=== PATIENT | male | born 1950 | race Caucasian/White ===

== ENCOUNTER 2019-07-11 00:28 | Day surgery (SDC) | payer MEDICARE, SELFPAY ==
[2019-07-06 13:18] VITALS: BMI 23.6
[2019-07-11 07:33] VITALS: BP 151/87; PULSE 100; RESP 16; TEMP 36.7; O2SAT 100
[2019-07-11] MEDS: LACTATED RINGERS 1,000 ML 150 ML IV CONT (07:51)
--- NOTE | 2019-07-11 08:25 | WPDANESEPPF ---
Anes - Initial Pre Proc Eval Procedure: Operation Date: 07/11/19 08:30 Proposed Procedures p Screening Colonoscopy - Caleb Rinaldi MD Date/Time: 07/11/19 08:25 Surgeon: Caleb Rinaldi MD Pre Op Diagnosis: Neoplasm Screening Patient Data Age: 69 Gender: M Height: 5 ft 9 in Weight: 75.2 kg Last Vital Signs Temp 98.1 F 07/11/19 07:33 Pulse 100 07/11/19 07:33 Resp 16 07/11/19 07:33 BP 151/87 H 07/11/19 07:33 Pulse Ox 100 07/11/19 07:33 Allergies Allergy/AdvReac Type Severity Reaction Status Date / Time No Known Allergies Allergy Unverified 07/11/19 07:31 Home Medications Medication Instructions Recorded Confirmed Type No Home Medications 07/06/19 07/06/19 History Patient hx anesthesia problems: none Family hx anesthesia problems: none PMFSH Family History Family History (Updated 11/02/18 @ 10:18 by DOCTOR UNKNOWN) Father Diabetes mellitus Social History Social History Smoking status: Former smoker Second hand tobacco smoke exposure: No Smoking end date: 05/11/70 Alcohol intake: current Gender identity (if verbalized by the patient): Male Anes - Eval Final PreProcedure Day of Procedure 07/11/19 08:25 Patient weight: normal Heart: regular rate and rhythm Lungs: clear to auscultation Airway: Mallampati scale class II Neurological: alert and oriented Last oral intake: >/= 8 hours ASA classification: II Emergent: no Anesthetic plan: proceed Anesthesia type and monitoring: general GIVS and standard monitoring Informed Consent: The patient's anesthetic plan and its attendant risks and benefits were discussed with the patient/family/POA. Questions were solicited and answers provided to the satisfaction of the patient/family/POA.
--- NOTE | 2019-07-11 08:33 | P.CONGI_ITS ---
Assessment and Plan Additional Plan This is a 69-year-old white male patient seen in evaluation at the request of Miguelangel bedolla. Patient presents for screening colonoscopy. His current weight appetite bowel movements are normal. He has noticed some change in the bowel texture. He denies any blood in his stools. He denies abdominal pain. past medical history noncontributory. Family history is noncontributory. He is on no medications. No known medical allergies. Physical exam patient is alert. Vital signs stable. HEENT exam unremarkable. Lungs are clear to auscultation and percussion. Heart is without murmur or extra sounds. Abdominal exam bowel sounds are present soft nontender with no organomegaly. Digital external rectal exam normal. Impression 1. Neoplasia screening. 2. Change in bowel habits. Most suspicious for irritable bowel syndrome. Plan is for colonoscopy. Fiber supplements may help with his bowel irregularities. GI Consult Note Consult date/time: 07/11/19 08:33 HPI: Akin Conteh is a 69 year old male [facility] Family History Family History (Updated 11/02/18 @ 10:18 by DOCTOR UNKNOWN) Father Diabetes mellitus Social History Social History Smoking status: Former smoker Second hand tobacco smoke exposure: No Smoking end date: 05/11/70 Alcohol intake: current Gender identity (if verbalized by the patient): Male Meds Home Medications and Allergies Home Medications Medication Instructions Recorded Confirmed Type No Home Medications 07/06/19 07/06/19 History Allergies Allergy/AdvReac Type Severity Reaction Status Date / Time No Known Allergies Allergy Unverified 07/11/19 07:31 Vital Signs Vital Signs - 24 hr 07/11/19 07:33 Temperature 36.7 C Pulse Rate 100 Respiratory Rate 16 Blood Pressure 151/87 H Pulse Oximetry 100
[2019-07-11] MEDS: SIMETHICONE ORAL SUSPENSION 20 MG/0.3 ML 30 ML BOTTLE 0.6 ML IRRIGATION (08:41)
[2019-07-11 08:48] VITALS: BP 122/67; PULSE 89; RESP 18; O2SAT 97
[2019-07-11 08:58] VITALS: BP 117/67; PULSE 77; RESP 21; O2SAT 98
[2019-07-11 09:04] VITALS: BP 125/79; PULSE 73; RESP 19; O2SAT 98
== END 2019-07-11 09:29 | disposition home or self-care (01) ==
PROVIDERS: PCP Internal Medicine; Visit Provider Internal Medicine Gastroenterology
PROC: 0DJD8ZZ Inspection of Lower Intestinal Tract, Via Natural or Artificial Opening Endoscopic (ICD-10-PCS; CPT 45378; principal; 2019-07-11 08:30)
DX: Z12.11 Encounter for screening for malignant neoplasm of colon (principal); D12.4 Benign neoplasm of descending colon; K57.30 Diverticulosis of large intestine without perforation or abscess without bleeding; K64.8 Other hemorrhoids; Z87.891 Personal history of nicotine dependence
CPT/HCPCS: 45385; 88305; J2704; J7120

== ENCOUNTER 2022-08-26 08:09 | Outpatient (CLI) | payer MEDICARE, SELFPAY ==
[2022-08-26 19:38] LABS: Alanine Aminotransferase 22 U/L (6-50); Albumin Level 3.9 g/dL (3.5-5.1); Alkaline Phosphatase 73 U/L (38-126); Anion Gap 8 mmol/L (8-16); Aspartate Amino Transferase 23 U/L (17-59); Bilirubin,Total 0.5 mg/dL (0.2-1.3); Blood Urea Nitrogen 24 mg/dL (9-20); Calcium 8.6 mg/dL (8.4-10.2); Carbon Dioxide 24 mmol/L (22-30); Chloride 109 mmol/L (98-107); Cholesterol 180 mg/dL (0-200); Estimated Glomerular Filt Rate > 60; Glucose 86 mg/dL (65-110); HDL Direct 35 mg/dL; Potassium 4.1 mmol/L (3.4-5.0); Sodium 141 mmol/L (137-145); Triglycerides 121 mg/dL (<150)
[2022-08-26 19:45] LABS: Basophils Percent Auto 0.4 % (0.2-1.2); Eosinophils Absolute Auto 0.2 K/mm3 (0-0.3); Eosinophils Percent Auto 3.2 % (0-4.4); Hematocrit 46.4 % (42.0-52.0); Hemoglobin 14.9 g/dL (14.0-18.0); Immature Granulocyte Absolute 0.02 K/mm3 (0.00-0.031); Immature Granulocyte Percent A 0.4 % (0-0.5); Lymphocytes Percent Auto 24.8 % (18.3-44.2); Mean Corpuscular HGB Conc 32.1 g/dl (32-36); Mean Corpuscular Hemoglobin 31.4 pg (26-34); Mean Corpuscular Volume 97.9 fl (80-100); Mean Platelet Volume 11.4 fl (7.4-10.4); Monocytes Absolute Auto 0.4 K/mm3 (0.1-0.6); Monocytes Percent Auto 7.8 % (2.6-8.5); Neutrophils Absolute Auto 3.3 K/mm3 (1.3-6.7); Neutrophils Percent Auto 63.4 % (45.5-73.1); Platelet Count Result 217 k/mm3 (150-375); Red Blood Count 4.74 M/mm3 (4.6-6.20); Red Cell Distribution Width 13.2 % (11.5-14.5); White Blood Count 5.2 K/mm3 (4.5-10.0)
[2022-08-26 19:49] LABS: LDL Cholesterol Direct 105 mg/dL
[2022-08-26 20:06] LABS: Prostate Specific Antigen 2.9 ng/mL (< OR = 4.0)
[2022-08-31 18:21] LABS: Testosterone Free 75.3 pg/mL (30.0-135.0); Testosterone Total 373 ng/dL (250-1100)
== END 2022-08-26 08:10 | disposition home or self-care (01) ==
LOC: ANHGOSHLAB 08:10
PROVIDERS: PCP Internal Medicine; Visit Provider Internal Medicine
DX: E29.1 Testicular hypofunction (principal); I10 Essential (primary) hypertension; Z13.228 Encounter for screening for other metabolic disorders; Z12.5 Encounter for screening for malignant neoplasm of prostate
CPT/HCPCS: 36415; 80053; 80061; 84153; 84402; 84403; 85025; G0103

== ENCOUNTER 2024-04-14 09:36 | Outpatient (CLI) | payer MEDICARE, SELFPAY ==
--- NOTE | ~2024-04-14 | MR_ITS ---
EXAMINATION: MR shoulder LT wo con DATE: 04/14/2024 10:07 INDICATION: Left shoulder pain. TECHNIQUE: Magnetic resonance imaging (MRI) of the left shoulder was performed without intravenous co ntrast. Sequences included axial PD-weighted FS FSE, coronal oblique PD-weighted FS FSE and T2-weight ed FS FSE, and sagittal oblique T2-weighted FS FSE and T1-weighted FSE. COMPARISON: None. FINDINGS: Coracoacromial arch: The acromion undersurface is curved in morphology (type II). There is severe acromioclavicular joint osteoarthritis. There is mild subacromial/subdeltoid bursitis. Rotator cuff: There is moderate supraspinatus tendinopathy and mild infraspinatus tendinopathy. There is an articul ar-sided partial thickness tear of the conjoined portion of the tendon measuring 10 mm anterior to po sterior by 6 mm proximal to distal by 1/5 tendon thickness. Teres minor tendon is normal. There is mi ld subscapularis tendinopathy. There is no asymmetric fatty atrophy of the rotator cuff muscle bellie s. Biceps tendon and glenoid labrum: Biceps tendon is in bicipital groove. Intra-articular biceps tendon is normal. The glenoid labrum is intact. Fluid: There is a small glenohumeral joint effusion. Bones/cartilage: There is cartilage surface irregularity of glenoid and humeral head. Osteophytes are noted. IMPRESSION: 1. Partial-thickness rotator cuff tear. 2. Mild glenohumeral joint chondrosis. 3. Severe acromioclavicular joint osteoarthritis. 4. Small glenohumeral joint effusion. 5. Mild subacromial/subdeltoid bursitis. Reviewed, dictated and finalized at location [facility]
== END 2024-04-14 09:37 | disposition home or self-care (01) ==
LOC: GOSHIMG 09:36
PROVIDERS: PCP Nurse Practitioner; Visit Provider Nurse Practitioner
DX: M75.102 Unspecified rotator cuff tear or rupture of left shoulder, not specified as traumatic (principal); M94.212 Chondromalacia, left shoulder; M19.012 Primary osteoarthritis, left shoulder; M25.412 Effusion, left shoulder; M75.52 Bursitis of left shoulder
CPT/HCPCS: 73221

== ENCOUNTER 2025-04-25 01:38 | Day surgery (SDC) | payer MEDICARE, SELFPAY ==
[2025-04-10 13:42] VITALS: BMI 23.6
[2025-04-25 13:04] VITALS: BP 148/94; PULSE 87; RESP 18; TEMP 36.6; O2SAT 100
[2025-04-25] MEDS: LACTATED RINGERS 1,000 ML 150 ML IV CONT (13:15)
--- NOTE | 2025-04-25 13:42 | P.PNAN_ITS ---
Anes - Initial Pre Proc Eval Procedure: Operation Date: 04/25/25 13:00 Proposed Procedures p Screening Colonoscopy - Cristian Perez MD Date/Time: 04/25/25 13:42 Surgeon: Cristian Perez MD Pre Op Diagnosis: Personal history of colon polyps, unspecified Patient Data Age: 75 Gender: M Height: 1.75 m Weight: 73 kg Last Vital Signs Temp 97.9 F 04/25/25 13:04 Pulse 87 04/25/25 13:04 Resp 18 04/25/25 13:04 BP 148/94 H 04/25/25 13:04 Pulse Ox 100 04/25/25 13:04 O2 Del Method Room Air 04/25/25 13:04 Allergies Allergy/AdvReac Type Severity Reaction Status Date / Time No Known Allergies Allergy Verified 04/25/25 13:04 Home Medications ?Medication ?Instructions ?Recorded ?Confirmed ?Type latanoprost 0.005 % eye drops 1 drp EACH EYE QPM 08/2504/10/25 History lisinopril 10 mg tablet 10 mg PO DAILY #90 tabs 06/0404/10/25 Rx Patient hx anesthesia problems: none Family hx anesthesia problems: none Results Review: All pre-operative results and documents have been reviewed as part of the pre- operative evaluation. [facility] Past Medical History Medical History Male hypogonadism Essential hypertension Hypertension Surgical History Surgical History S/P hernia repair Family History Family History Father Diabetes mellitus Mother Cancer Social History Social History Years smoked: 2 Smoking status: Former smoker Tobacco type: cigarettes Second hand tobacco smoke exposure: No Smoking end date: 05/11/70 Alcohol intake: current Drinks per week: 6 Substance use: never Substance use type: does not use Lack of Transportation: No Lack of Food: Never True Current Housing: I Have Housing Concerned About Future Housing: No Difficulty Paying Gas/Electric Bills: No Difficulty Paying for Meds: No Currently Unemployed: No Education: Master's Degree or Higher Difficulty w/ Childcare or Family Care: No Living arrangements: with family Gender identity (if verbalized by the patient): Male Spiritual care concerns: No Agree to blood products: Yes Anes - Eval Final PreProcedure Day of Procedure 04/25/25 13:42 Patient weight: normal Lungs: normal air movement Airway: Mallampati scale class II Neurological: alert and oriented Last oral intake: >/= 8 hours ASA classification: II Emergent: no Anesthetic plan: proceed Anesthesia type and monitoring: general GIVS and standard monitoring Results Review: All pre-operative results and documents have been reviewed as part of the pre- operative evaluation. HTN, very active w cardio/wts, 5 x weekly, no cp or sob. Informed Consent: The patient's anesthetic plan and its attendant risks and benefits were dis cussed with the patient/family/POA. Questions were solicited and answers provided to the satisfaction of the patient/family/POA.
--- NOTE | 2025-04-25 13:48 | PM.IMHP2 ---
H&P: HPI History of Present Illness Date/Time: 04/25/25 13:48 Chief Complaint: History of colon polyps Narrative: The patient has a history of colonic polyps, the last colonoscopy was 5 years ago. Review of Systems Review of Systems: All systems reviewed & are unremarkable except as noted in HPI and below PMFSH Past Medical History Medical History Male hypogonadism Essential hypertension Hypertension Surgical History Surgical History S/P hernia repair Family History Family History Father Diabetes mellitus Mother Cancer Social History Social History Years smoked: 2 Smoking status: Former smoker Tobacco type: cigarettes Second hand tobacco smoke exposure: No Smoking end date: 05/11/70 Alcohol intake: current Drinks per week: 6 Substance use: never Substance use type: does not use Lack of Transportation: No Lack of Food: Never True Current Housing: I Have Housing Concerned About Future Housing: No Difficulty Paying Gas/Electric Bills: No Difficulty Paying for Meds: No Currently Unemployed: No Education: Master's Degree or Higher Difficulty w/ Childcare or Family Care: No Living arrangements: with family Gender identity (if verbalized by the patient): Male Spiritual care concerns: No Agree to blood products: Yes Meds Home Medications and Allergies Home Medications ?Medication ?Instructions ?Recorded ?Confirmed ?Type latanoprost 0.005 % eye drops 1 drp EACH EYE QPM 08/25/22 04/10/25 History lisinopril 10 mg tablet 10 mg PO DAILY #90 tabs 12/09/24 04/10/25 Rx Allergies Allergy/AdvReac Type Severity Reaction Status Date / Time No Known Allergies Allergy Verified 04/25/25 13:04 Vital Signs Vital Signs - 24 hr 04/25/25 13:04 Temperature 97.9 F Pulse Rate 87 Respiratory Rate 18 Blood Pressure 148/94 H Pulse Oximetry 100 Oxygen Delivery Room Air Exam Const: General: cooperative and healthy appearing Resp: Effort & Inspection: normal respiratory effort and able to speak in complete sentences Auscultation: clear to auscultation bilaterally Cardio: Rate: regular rate Rhythm: regular rhythm GI: Inspection: normal to inspection GI Palp: No No hepatosplenomegaly present Auscultation: normal bowel sounds Rectal Exam: deferred Skin: General skin exam: normal color Psych: Appearance: grossly normal Mental Status: mental status grossly normal Assessment and Plan Assessment and plan (1) Screening for colon cancer: Code(s): Z12.11 - Encounter for screening for malignant neoplasm of colon Status: Acute Assessment and Plan: The patient is deemed a good candidate for the procedure. Consent signed. Will proceed. Prior Studies I have reviewed the following patient records and this information was taken into consideration when formulating the assessment and plan.: previous labs, previous ER visits, previous hospitalizations and previous clinic visits
--- NOTE | 2025-04-25 14:08 | S_PTH ---
PATIENT: Akin Conteh LOC: [facility] U#:[id number] AGE/SX: 75/M ROOM: RE04/25/[address]: Cristian Perez MD : 1950 BED: DIS: 04/25/2025 SPEC #: [id number] RECD: 04/26/25 07:41 STATUS: MARI REArianna #: [id number] JOSE ALEJANDRO: 04/25/25 14:[address]: Cristian Perez DEPT: [facility] Surgical RECD BY: Yoanna Ortega ENTERED: 04/26/25 07:41 SP TYPE: Surgical OTHR DR: Moustapha Perez DO Tissues: A - Colon Polypectomy Procedures: Hematoxylin and Eosin Stain Gross and Microscopic Level 4
[2025-04-25 14:17] VITALS: BP 123/69; PULSE 75; RESP 19; O2SAT 97
[2025-04-25 14:27] VITALS: BP 133/70; PULSE 71; RESP 20; O2SAT 97
[2025-04-25 14:37] VITALS: BP 152/91; PULSE 71; RESP 21; O2SAT 99
== END 2025-04-25 14:58 | disposition home or self-care (01) ==
PROVIDERS: PCP Internal Medicine; Referring Provider Nurse Practitioner; Visit Provider Internal Medicine Gastroenterology
PROC: 0DJD8ZZ Inspection of Lower Intestinal Tract, Via Natural or Artificial Opening Endoscopic (ICD-10-PCS; CPT 45378; principal; 2025-04-25 13:00)
DX: Z12.11 Encounter for screening for malignant neoplasm of colon (principal); K63.5 Polyp of colon; K64.8 Other hemorrhoids; K57.30 Diverticulosis of large intestine without perforation or abscess without bleeding; E29.1 Testicular hypofunction; I10 Essential (primary) hypertension; Z98.890 Other specified postprocedural states; Z87.891 Personal history of nicotine dependence; Z80.9 Family history of malignant neoplasm, unspecified
CPT/HCPCS: 45385; 88305; J2003; J2704; J7120